=== PATIENT | female | born 1950 | race Caucasian/White ===

== ENCOUNTER → 2022-03-05 | Outpatient (CLI) | payer MEDICARE ==
[~2022-03-05] MED LIST: B-COMPLEX WITH1 EACH PO; CLARITIN10 MG PO; CO Q-1010 MG PO; COLLAGEN-VIT C1 EACH PO; D3-200050 MCG PO; DULCOLAX10 MG PR; DULOXETINE HCL30 MG PO; HYZAAR 100-251 EACH PO; MULTIVITAMINS1 EAC1 PO; NAPROSYN500 MG PO; PROTONIX40 MG PO; VITAMIN E400 UNI1 PO
[2022-03-05 10:30] LABS: HEMOGLOBIN 14.8 gm/dl (12.3-15.3); RED BLOOD COUNT 4.53 M/UL (4.00-5.10); WHITE BLOOD COUNT 6.1 K/UL (4.5-11.0)
== END ==
LOC: OPSV2 09:00
PROVIDERS: Obstetrics & Gynecology
DX: Z01.818 Encounter for other preprocedural examination (principal); N81.6 Rectocele
CPT/HCPCS: 36415; 71046; 80053; 81001; 85025; 93005

== ENCOUNTER 2022-03-12 04:57 | Day surgery (SDC) | payer MEDICARE ==
[~2022-03-12] VITALS: Ht 162.6 cm; Wt 78.9 kg
[~2022-03-12 04:57] MED LIST changes: -PROTONIX40 MG PO
[2022-03-12] MEDS ORDERED: MELATONIN PO (06:25)
[2022-03-12] MEDS ORDERED: HYDROCODON-ACE1 EAC2 PO (09:00)
[2022-03-12] MEDS ORDERED: POLYETHYLENE G500 G3 MC (09:00)
[2022-03-12] MEDS ORDERED: NAPROSYN500 MG PO (09:00)
[2022-03-12] MEDS ORDERED: ZOFRAN 4 MG TAB4 MG PO (09:00)
[2022-03-12] MEDS ORDERED: PROTONIX40 MG PO (10:31)
[2022-03-12] MEDS ORDERED: MELATONIN3 MG PO (13:58)
--- NOTE | 2022-03-13 00:20 | NUR ---
PT CALLED OUT COMPLAINING OF PRESSURE AND DISCOMFORT FROM ZIMMERMAN CATHETER. CONCENTRATED YELLOW URINE NOTED IN TUBING. ZIMMERMAN CATHETER FLUSHED WITH NO RELIEF OF PT COMPLAINTS. ZIMMERMAN CATH REMOVED AT THIS TIME AND NEW 16FR INSERTED USING STERILE TECHNIQUE. PT TOLERATED INSERTION WELL. PT REPORTS HAVING LESS DISCOMFORT ONCE NEW ZIMMERMAN WAS ENTERED. WILL CONTINUE TO MONITER.
--- NOTE | 2022-03-13 05:36 | NUR ---
PER MD ORDER, VAGINAL PACKING AND ZIMMERMAN CATHETER REMOVED AT THIS TIME. PT TOLERATED WELL. ENCOURAGED PT TO AMBULATE AND VOID NEEDED. DISCUSSED MD ORDER FOR CHECKING FOR POST VOID RESIDUAL IN THE MORNING, PT VERB UNDERSTANDING. NO FURTHER NEEDS OR CONCERNS AT THIS TIME. WILL CONTINUE TO MONITER.
[2022-03-13 05:38] LABS: HEMOGLOBIN 12.4 gm/dl (12.3-15.3)
--- NOTE | 2022-03-13 06:49 | NUR ---
PT SITTING UP IN CHAIR AT THIS TIME. PT AMBULATED WITH MINIMAL ASSISTANCE.
== END 2022-03-13 13:19 | disposition home or self-care (01) ==
LOC: OR 04:57 → OB 11:10 → OR 03-13 13:19
PROVIDERS: Obstetrics & Gynecology
DX: N81.5 Vaginal enterocele (principal); N81.6 Rectocele; N81.10 Cystocele, unspecified; I10 Essential (primary) hypertension; E78.5 Hyperlipidemia, unspecified; K21.9 Gastro-esophageal reflux disease without esophagitis; Z98.51 Tubal ligation status; Z79.899 Other long term (current) drug therapy; Z88.5 Allergy status to narcotic agent; Z91.013 Allergy to seafood
CPT/HCPCS: 85014; 85018; C1769; J0690; J1100; J1170; J2001; J2270; J2405; J2550; J2704; J2765; J2795; J3010; J7120